=== PATIENT | female | born 1970 | race Caucasian/White ===

== ENCOUNTER 2018-02-02 10:30 | Day surgery (SDC) | payer OTHER ==
[~2018-02-02 10:30] MED LIST: COZAAR25 MG PO; METFORMIN HCL500 MG PO
[2018-02-02] MEDS ORDERED: FLAGYL500MG PO (17:12)
[2018-02-02] MEDS ORDERED: NAPROXEN375 MG PO (17:13)
== END 2018-02-02 22:20 | disposition home or self-care (01) ==
LOC: CIR.AMB 10:30
DX: N84.0 Polyp of corpus uteri (principal); N72 Inflammatory disease of cervix uteri